=== PATIENT | female | born 1950 | race Caucasian/White ===

== ENCOUNTER → 2017-11-14 | Outpatient (CLI) | payer MEDICARE, OTHER ==
[2017-08-18 12:41] VITALS: BP 115/72
[~2017-11-14] MED LIST: ASCO10002 PO; ASPI325T11 PO; CALC-112 PO; CELE200C PO; CHOL10003 PO; EZET1TAB30 PO; FERR325T14 PO; FISH1CAP PO; GLUC100018 PO; IBUP-1007 PO; MULT1TAB52 PO; OXYC-323 PO; SENN1TAB99 PO
[2017-11-14 10:44] LABS: BASO # 0.1 x10^3/uL (0.0-0.2); BASO % 1 % (0-3); EOS # 0.1 x10^3/uL (0.0-0.7); EOS % 2 % (0-3); HEMATOCRIT 40.7 % (36.0-47.0); LYMPH # 1.6 x10^3/uL (1.0-4.8); LYMPH % 20 % (24-48); MEAN CORPUSCULAR HEMOGLOBIN 31 pg (25-35); MEAN CORPUSCULAR HGB CONC 34 g/dL (31-37); MEAN CORPUSCULAR VOLUME 92 fL (79-100); MONO # 0.7 x10^3/uL (0.0-1.1); MONO % 9 % (0-9); NEUT # 5.5 x10^3uL (1.8-7.7); NEUT % 70 % (31-73); PLATELET COUNT 307 x10^3/uL (140-400); RED BLOOD COUNT 4.45 x10^6/uL (3.50-5.40); RED CELL DISTRIBUTION WIDTH 14.8 % (11.5-14.5); WHITE BLOOD COUNT 7.9 x10^3/uL (4.0-11.0)
[2017-11-14 10:44] LABS: BILIRUBIN,URINE NEGATIVE (NEG); CLARITY,URINE CLEAR; COLOR,URINE YELLOW; NITRITE,URINE NEGATIVE (NEG); PH,URINE 6.5; PROTEIN,URINE NEGATIVE (NEG-TRACE); UROBILINOGEN,URINE 0.2 mg/dL (0.2 mg/dL)
[2017-11-14 10:51] LABS: BACTERIA,URINE 0 /HPF (0-FEW); RBC,URINE OCC /HPF (0-2); SQUAMOUS EPITHELIAL CELL,UR FEW /LPF; WBC,URINE 0 /HPF (0-4)
[2017-11-14 11:05] LABS: ALBUMIN 3.9 g/dL (3.4-5.0); CALCIUM 9.5 mg/dL (8.5-10.1); CREATININE 0.6 mg/dL (0.6-1.0); GFR 99.7; POTASSIUM 3.7 mmol/L (3.5-5.1)
[2017-11-14 11:06] LABS: PROTHROMBIN TIME PATIENT 12.5 SEC (11.7-14.0)
== END | disposition home or self-care (01) ==
LOC: SURGPAT 10:09
PROVIDERS: ATTEND Orthopaedic Surgery
DX: Z01.818 Encounter for other preprocedural examination (principal); M17.0 Bilateral primary osteoarthritis of knee; E78.5 Hyperlipidemia, unspecified; Z91.041 Radiographic dye allergy status; Z82.49 Family history of ischemic heart disease and other diseases of the circulatory system; Z79.899 Other long term (current) drug therapy
CPT/HCPCS: 36415; 80048; 81001; 82040; 82306; 85025; 85610; 85651; 85730; 87641

== ENCOUNTER 2017-11-29 09:07 | Inpatient (IN) | payer MEDICARE, OTHER ==
--- NOTE | 2017-11-28 14:45 | PDOC1 ---
History and Physical Date of Admission Date of Admission DATE: 11/29/17 Identification/Chief Complaint Chief Complaint left knee osteoarthritis pain Source Source: Chart review History of Present Illness History of Present Illness The patient is a 66 year old female with left knee pain for 5 years, worsening in the last year. She had a right total knee arthroplasty on 08/16/17, which is doing well and is now her good knee. "Stepping wrong" causes a sharp pain. She has not been able to do her gardening due to the pain. She would like to discuss a left total knee arthroplasty now since her right knee is doing so well. She notes she is walking a mile a day. The left knee bothers her on a daily basis and limits her activity. Past Medical History Cardiovascular: Hyperlipidemia Past Surgical History Past Surgical History: Total knee replacement (right - 08/16/17), Tubal Ligation Family History Family History: Hypertension Social History Smoke: No ALCOHOL: none Drugs: None Current Medications Current Medications Current Medications Ondansetron HCl (Zofran) 4 mg PRN Q6HRS PRN IV NAUSEA/VOMITING; Start 11/29/17 at 07:00; Stop 11/29/17 at 18:00 Fentanyl Citrate (Fentanyl 2ml Vial) 25 mcg PRN Q5MIN PRN IV MILD PAIN; Start 11/29/17 at 07:00; Stop 11/29/17 at 18:00 Fentanyl Citrate (Fentanyl 2ml Vial) 50 mcg PRN Q5MIN PRN IV MODERATE TO SEVERE PAIN; Start 11/29/17 at 07:00; Stop 11/29/17 at 18:00 Morphine Sulfate (Morphine Sulfate) 1 mg PRN Q10MIN PRN IV SEVERE PAIN; Start 11/29/17 at 07:00; Stop 11/29/17 at 18:00 Ringer's Solution 1,000 ml @ 30 mls/hr Q24H IV ; Start 11/29/17 at 07:00; Stop 11/29/17 at 18:59 Lidocaine HCl (Xylocaine-Mpf 1% 2ml Vial) 2 ml PRN 1X PRN ID IV START; Start 11/29/17 at 07:00; Stop 11/29/17 at 18:00 Hydromorphone HCl (Dilaudid) 0.5 mg PRN Q10MIN PRN IV SEV PAIN, Second choice; Start 10/9/18 at 07:00; Stop 11/29/17 at 18:00 Prochlorperazine Edisylate (Compazine) 5 mg PACU PRN PRN IV NAUSEA, MRX1; Start 11/29/17 at 07:00; Stop 11/29/17 at 18:00 Active Scripts Active Reported Vitamin D3 (Cholecalciferol (Vitamin D3)) 1,000 Unit Tablet 1 Tab PO BID Glucosamine (Glucosamine Sulfate 2KCL) 1,000 Mg Tablet 1,000 Mg PO BID Citracal + D Er Tablet (Calcium Carb & Cit/Vitamin D3) 1 Each Tablet.er 2 Each PO DAILY Multivitamins (Multivitamin) 1 Each Tablet 1 Tab PO DAILY Ferrous Sulfate 325 Mg Tablet 1 Tab PO DAILY Fish Oil 1,200 Mg Fish Oil (Fish Oil/Dha/Epa) 1 Each Capsule 1 Each PO DAILY Vitamin C (Ascorbic Acid) 1,000 Mg Tablet 1,000 Mg PO BID Vytorin 10-20 Mg Tablet (Ezetimibe/Simvastatin) 1 Each Tablet 1 Each PO HS Allergies Allergies: Coded Allergies: No Known Medication Allergies (Verified Allergy, Unknown, 08/16/17) Physical Exam General: Alert, Oriented X3, Cooperative, No acute distress HEENT: Atraumatic, EOMI Lungs: Normal air movement Heart: RRR Abdomen: Soft Extremities: No clubbing, No cyanosis, Normal pulses, Other (LEFT KNEE: No masses. No detectable effusion. Tenderness on the medial and lateral joint lines. Range of motion is 5-115 degrees. There is crepitus with range of motion , and pain at the extremes of motion. The knee is stable to varus and valgus stress without subluxation or laxity. Muscle strength is normal (5/5) for quadriceps and hamstrings, and muscle tone is normal. The skin is normal with no scars, rashes, lesions or ulcers. Light touch sensation is intact. No edema and no varicosities. Dorsalis pedis pulse is intact and capillary refill is normal. ) Skin: No rashes, No breakdown, No significant lesion Neuro: Normal speech, Sensation intact Psych/Mental Status: Mental status NL, Mood NL VTE Prophylaxis Ordered VTE Prophylaxis Devices: Yes VTE Pharmacological Prophylaxi: Yes Assessment/Plan Assessment/Plan Left knee osteoarthritis pain. As her right knee is doing so well, I think she would be a good candidate to replace the left knee. She would like to proceed with total knee replacement. We will not send her to the [facility] preoperatively as she just did it with right knee. She will schedule at her convenience. We discussed the risks and benefits of knee replacement including bleeding, infection, post- operative stiffness, instability, mora-prosthetic fracture, DVT and PE. All questions were answered. She would like to proceed with the surgery to improve her pain with activity. Follow up with me 10-14 days after surgery. JOSHUA LIZARRAGA Nov 28, 2017 14:45
[~2017-11-29] VITALS: Ht 154.9 cm; Wt 63.5 kg
[2017-11-29] VITALS (7 sets, daily range): BP systolic 94–121; BP diastolic 56–66
[~2017-11-29 09:07] MED LIST changes: +CELECOXIB 100 MG CAPSULE. PO PRN; +HYDROcodone/APAP 7.5/325MG 1 TAB TABLET PO PRN; +HYDROmorphone 2 MG/ML VIAL IV PRN; +IV RINGERS,LACTATED 1000ML 1,000 ML IV SCH; +LIDOCAINE 1% PF 2 ML VIAL. ID PRN; +MORPHINE SULFATE 2 MG/ML VIAL. IV PRN; +MORPHINE SULFATE 5 MG, KETOROLAC 30MG VIAL 30 MG, ROPIVacaine 0.5% PF 60 ML, EPINEPHrin... INT ART ONE; +ONDANSETRON PF 4 MG/2 ML VIAL. IV PRN; +PROCHLORPERAZINE 10 MG/2 ML VIAL. IV PRN; +TRANEXAMIC ACID 1,000 MG in IV NS 50ML -- 1ST BAG INJ ONE; +TRANEXAMIC ACID 1,000 MG in IV NS 50ML -- 2ND BAG INJ ONE; +fentaNYL PF VIAL 100 MCG/2 ML VIAL IV PRN
[2017-11-29] MEDS ORDERED: SCOPOLAMINE 1.5MG PATCH. TD ONE (10:00)
[2017-11-29] MEDS ORDERED: FAMOTIDINE 20 MG/2 ML VIAL ONE (10:28)
[2017-11-29] MEDS ORDERED: fentaNYL PF VIAL 100 MCG/2 ML VIAL ONE ×2 (10:28→14:47)
[2017-11-29] MEDS ORDERED: PROPOFOL 20 ML IV ONE (10:28)
[2017-11-29] MEDS ORDERED: DEXAMETHASONE SOD PHOS 20 MG/5 ML VIAL. ONE (10:28)
[2017-11-29] MEDS ORDERED: ROCURONIUM 50 MG/5 ML VIAL. ONE (10:28)
[2017-11-29] MEDS ORDERED: MIDAZOLAM HCL/PF 2 MG/2 ML VIAL. ONE (10:28)
[2017-11-29] MEDS ORDERED: ONDANSETRON PF 4 MG/2 ML VIAL. ONE (10:28)
[2017-11-29] MEDS ORDERED: VANCOMYCIN 1 GM VIAL. ONE (11:30)
[2017-11-29] MEDS ORDERED: TOBRAMYCIN POWDER 1.2 GM VIAL. ONE (11:31)
[2017-11-29] MEDS ORDERED: ePHEDrine PF IN SALINE 50 MG/5 ML DISP.SYRIN IV ONE (14:00)
[2017-11-29] MEDS ORDERED: PHENYLEPHRINE in 0.9% NACL PF 1 MG/10 ML SYRINGE. IV ONE (14:26)
[2017-11-29] MEDS ORDERED: SEVOFLURANE 61 TO 120 MINUTES. IH ONE (15:48)
--- NOTE | 2017-11-29 15:58 | PDOC4 ---
Operative Note Operative Note Date of Procedure: November 29, 2017 Pre-Op Diagnosis: Osteoarthritis left knee Post-Op Diagnosis: Osteoarthritis left knee Procedure: left total knee arthroplasty Surgeon: Aracely Gunter MD Skoog Patching Machine Operator: Vicky Viera PA-C Anesthesia: General EBL: 100 mL Specimens Obtained: left knee bone and soft tissue Complications: none Implant Company: [employer] Drains: hemovac plus pain catheter Tourniquet time: 49 Minutes Tourniquet Pressure: 350 mm Hg Indications for Procedure: Arthritis pain unrelieved by nonoperative management Findings: Severe osteoarthritis with severe medial eburnation and bone loss, and bone on bone contact medially with full thickness cartilage loss in the patellofemoral and lateral compartments. Implants used: Size 3 left bicruciate stabilized Journey II BCS cobalt chrome femoral component, size 3 left Journey nonporous tibial baseplate, size 3 -4 18 mm left Journey II BCS XLPE constrainedarticular insert, 32 mm oval Valentina II resurfacing patellar component Procedure in Detail: The patient was identified in the preoperative holding area, and the correct left lower extremity was marked by me. The patient was taken to the operating room where the patient was anesthetized by the Department of Anesthesia. Preoperative antibiotics were given intravenously. Tranexamic acid 1 g was given intravenously for intraoperative hemostasis. A "time-out" procedure was performed. The patient was positioned supine on the operative table with a tourniquet on the upper left thigh. The left lower limb was thoroughly prepped and draped in sterile fashion. An impervious stockinet and adhesive drape were used such that the skin was entirely covered. An Willis leg jack was used. The operating team wore personal exhaust-ventilated hoods. The limb was elevated and exsanguinated with an Esmarch bandage, and the tourniquet was inflated. A midline skin incision was made with a scalpel using the patella and tibial tubercle as landmarks. Electrocautery was used for hemostasis. My assistant store manager sales used rake retractors. A medial parapatellar arthrotomy incision was used with extension into the distal quadriceps tendon. The patella was retracted laterally and Hohmann retractors were now used by my assistant store manager sales. Excess synovium, the menisci, and the cruciate ligaments were resected sharply. The patella was assessed and excess synovium and osteophytes around the patellar articulation were removed. The patella was measured with a caliper, cut freehand with a saw using caliper measurements, sized, and then drilled for an oval three-pegged patella component. Periarticular anesthetic injection was used in the suprapatellar pouch and distal quadriceps muscle. Whitesides's line and the transepicondylar axis were marked on the femur. An intra-medullary 5 degree cutting guide was pinned to the femur, and a distal femoral cut was made with an oscillating saw. No additional distal femoral resection was required. My assistant store manager sales held Hohmann retractors and an [facility] retractor to protect the medial and lateral collateral ligaments, the patellar tendon, the skin and the other soft tissues. A posterior referencing guide was applied with external rotation of 3 to match Whitesides line. A 5-in-1 Journey II cutting guide was then applied and pinned to the femur. The posterior, anterior, and all chamfer cuts were made with the oscillating saw. An extramedullary guide was pinned to the tibia and rotational alignment and the planned resection thickness assessed. An external alignment richard was used to verify the planned cut in the varus-valgus plane and regarding posterior slope referencing the tibial tubercle, the tibial shaft, the ankle joint, and the second metatarsal. The upper tibia was cut made with an oscillating saw. My assistant store manager sales held Hohmann retractors and a posterior cruciate ligament retractor to protect the medial and lateral collateral ligaments, the patellar tendon, the skin, the peroneal nerve and the other soft tissues. The upper tibia was sized with a trial baseplate. The posterior compartment was cleared of osteophytes and loose bodies. Periarticular anesthetic injection was used in the posterior compartment. The box cut for a posterior stabilized component was made. A preliminary reduction was performed with a trial femur, trial tibial baseplate and trial polyethylene. Soft-tissue balancing was now performed, and extension and rotation of the alignments was checked using a guide richard in the tibial trial and a guide pin in the femur. No additional releases were required. The stability was assessed using different thicknesses of tibial articular surface to find satisfactory stability and good range of motion. The rotation of the tibial component was marked on the upper tibia. Final trial reduction was now performed verifying patella tracking and tibiofemoral stability and alignment. The tibia preparation was completed with a drill, saw, and fin punch at the previously noted rotation. The final implants were verified and opened. Outer gloves were changed by the operating team. The bone cuts were washed thoroughly with the Carloz InterPulse device and dried. I asked Ms. Viera to leave the room on the cement was mixed. Two packages of Francis + Nephew Rally MV bone cement were mixed in powdered form with Vancomycin 1gm and Tobramycin 1.2 gm, and then vacuum-mixed with the monomer, and placed into a cement gun. The cut surfaces of the bone were thoroughly dried with Alvarez-tip suction and with laparotomy sponges for cement interdigitation. The final components were cemented into place. The knee was kept at full extension while the cement hardened, and excess cement was removed. Tranexamic acid 1 g was redosed intravenously for additional intraoperative hemostasis. The tourniquet was released, and electrocautery was used for hemostasis. A final periarticular anesthetic injection was used for pain relief. Ms. Viera scrubbed , hooded, gowned, gloved, and returned to the case. A final check of [id number] and stability was made, and the polyethylene implant final size was chosen. The polyethylene implant was secured to the tibial baseplate, and the knee was reduced a final time and range of motion and stability was confirmed. Thorough irrigation was used. Hemovac and pain catheter were used.The arthrotomy was closed with interrupted [id number] # 1 PDS suture. The arthrotomy incision was then run with #1 STRATAFIX Symmetric PDS Plus Knotless suture. The subcutaneous tissues were closed with #2-0 Vicryl by my assistant store manager sales. The skin was approximated with jeffrey by my assistant store manager sales. The skin incision was then covered and reinforced with BLAS single use negative pressure wound therapy dressing Needle and sponge counts were correct. There were no apparent complications. The patient returned to the recovery room in stable condition. ARACELY GUNTER MD Nov 29, 2017 15:58
[2017-11-29] MEDS ORDERED: 0.9 % SODIUM CHLORIDE 10 ML DISP.SYRIN. IV PRN (16:15)
[2017-11-29] MEDS ORDERED: DEXTROSE 50% 25 GM / 50ML DISP.SYRIN. IV PRN (16:15)
[2017-11-29] MEDS ORDERED: MORPHINE SULFATE 2 MG/ML VIAL. IV PRN (16:15)
[2017-11-29] MEDS ORDERED: fentaNYL PF VIAL 100 MCG/2 ML VIAL IV PRN ×2 (16:15)
[2017-11-29] MEDS ORDERED: CALCIUM CARBONATE 500 MG TAB.CHEW PO PRN (16:15)
[2017-11-29] MEDS ORDERED: traMADol 50 MG TABLET PO PRN ×2 (16:15)
[2017-11-29] MEDS ORDERED: oxyCODONE/APAP 5/325 1 TAB TABLET PO PRN (16:15)
[2017-11-29] MEDS ORDERED: MORPHINE SULFATE 10 MG/ML VIAL. IV PRN (16:15)
[2017-11-29] MEDS ORDERED: ACETAMINOPHEN 325 MG TABLET. PO PRN (16:15)
[2017-11-29] MEDS ORDERED: PROCHLORPERAZINE 5 MG TABLET. PO PRN (16:15)
[2017-11-29] MEDS ORDERED: oxyCODONE/APAP 7.5/325 1 TAB TABLET PO PRN (16:15)
[2017-11-29] MEDS ORDERED: diphenhydrAMINE HCL 25 MG CAPSULE PO PRN (16:15)
[2017-11-29] MEDS ORDERED: HYDROcodone/APAP 10/325 1 TAB TABLET PO PRN (16:15)
[2017-11-29] MEDS ORDERED: METOCLOPRAMIDE HCL 10 MG/2 ML VIAL. IV PRN (16:15)
[2017-11-29] MEDS ORDERED: MORPHINE SULFATE 4 MG/ML VIAL. IV PRN ×2 (16:15)
[2017-11-29] MEDS ORDERED: PROCHLORPERAZINE 10 MG/2 ML VIAL. IV PRN (16:15)
[2017-11-29] MEDS ORDERED: ZOLPIDEM 5 MG TABLET. PO PRN (16:15)
[2017-11-29] MEDS: KETOROLAC 30MG VIAL 30 MG, BUPIVACAINE MPF 0.25% 20 ML, EPINEPHrine 0.5 MG in TOTAL VOL... INT ART SCH (18:16)
[2017-11-29] MEDS: FERROUS SULFATE 325 MG TABLET. PO SCH (18:17)
[2017-11-29] MEDS: IV DEXTROSE 5 %-0.45 % NACL 1,000 ML IV SCH (20:08)
[2017-11-29] MEDS ORDERED: EZETIMIBE PO SCH (21:00)
[2017-11-29] MEDS ORDERED: SIMVASTATIN PO SCH (21:00)
[2017-11-29] MEDS: CHOLECALCIFEROL (VITAMIN D3) 1,000 UNIT TABLET PO SCH (21:05)
[2017-11-29] MEDS: ASCORBIC ACID 500 MG TABLET PO SCH (21:05)
[2017-11-29] MEDS: CELECOXIB 100 MG CAPSULE. PO SCH (21:05)
[2017-11-29] MEDS: SIMVASTATIN 20 MG TABLET PO SCH (21:08)
[2017-11-29] MEDS: EZETIMIBE 10 MG TABLET. PO SCH (21:08)
[2017-11-29] MEDS: ASPIRIN ENTERIC COATED 325 MG TABLET.DR. PO SCH (21:09)
--- NOTE | 2017-11-30 02:03 | RAD ---
Left knee 2 views: Reason for examination: Postop left knee arthroplasty. There are postop changes from left total knee arthroplasty. Drainage tube is present laterally. Surgical clips are present anteriorly. No acute fracture or dislocation is seen. IMPRESSION: Postop left total knee arthroplasty. Electronically signed by: Augustina Jesus MD (11/30/2017 1:59 AM) [facility]
[2017-11-30 03:00] VITALS: BP 95/50
[2017-11-30] MEDS: IV DEXTROSE 5 %-0.45 % NACL 1,000 ML IV SCH (04:00)
[2017-11-30 04:44] LABS: HEMATOCRIT 34.8 % (36.0-47.0); HEMOGLOBIN 11.7 g/dL (12.0-15.5)
[2017-11-30] MEDS: KETOROLAC 30MG VIAL 30 MG, BUPIVACAINE MPF 0.25% 20 ML, EPINEPHrine 0.5 MG in TOTAL VOL... INT ART SCH (05:31)
[2017-11-30 06:00] VITALS: BP 107/66
[2017-11-30] MEDS ORDERED: MAGNESIUM HYDROXIDE 2,400 MG/30 ML ORAL.SUSP. PO PRN (06:00)
[2017-11-30] MEDS: ASPIRIN ENTERIC COATED 325 MG TABLET.DR. PO SCH ×2 (08:28→20:39)
[2017-11-30] MEDS: CELECOXIB 100 MG CAPSULE. PO SCH ×2 (08:28→20:39)
[2017-11-30] MEDS: FERROUS SULFATE 325 MG TABLET. PO SCH ×2 (08:29→16:53)
[2017-11-30] MEDS: SENNOSIDES/DOCUSATE 8.6/50MG TABLET. PO SCH (08:29)
[2017-11-30] MEDS: CHOLECALCIFEROL (VITAMIN D3) 1,000 UNIT TABLET PO SCH ×2 (08:29→20:39)
[2017-11-30] MEDS: CALCIUM CARB/VIT D3 500/200 TABLET. PO SCH (08:29)
[2017-11-30] MEDS: MULTIVITAMIN with MINERAL TABLET. PO SCH (08:29)
[2017-11-30] MEDS: ASCORBIC ACID 500 MG TABLET PO SCH ×2 (08:29→20:39)
[2017-11-30] MEDS: HYDROcodone/APAP 7.5/325MG 1 TAB TABLET PO PRN ×2 (08:30→12:46)
--- NOTE | 2017-11-30 09:46 | PDOC ---
PROGRESS NOTES Subjective Subjective Doing well. Pain controlled. Objective Vital Signs Vital Signs Date Time Temp Pulse Resp B/P (MAP) Pulse Ox O2 Delivery O2 Flow Rate FiO2 11/30/17 08:30 Room Air 11/30/17 06:00 97.5 72 20 107/66 (80) 94 97.5 11/30/17 03:00 2.0 Physical Exam Postop dressing dry and intact. Hemovac and pain catheter in place. Thigh and calf soft and nontender with negative Homans sign. Good AROM toes, foot, and ankle, with no sign of neurovascular injury nor compartment syndrome. Labs Laboratory Tests Test 11/30/17 04:08 Hemoglobin 11.7 g/dL (12.0-15.5) Hematocrit 34.8 % (36.0-47.0) Mean Corpuscular Hemoglobin Concent 34 g/dL (31-37) Laboratory Tests Test 11/30/17 04:08 Hemoglobin 11.7 g/dL (12.0-15.5) Hematocrit 34.8 % (36.0-47.0) Mean Corpuscular Hemoglobin Concent 34 g/dL (31-37) Imaging Postoperative knee x-rays report reviewed, images independently reviewed. Satisfactory TKA alignment with no apparent complications. Assessment Assessment POD #1 TKA Plan Plan of Care Continue POC including PT and DVT prophylaxis. JOSHUA LIZARRAGA Nov 30, 2017 09:46
[2017-11-30] MEDS ORDERED: BISACODYL 10 MG SUPP.RECT. PR PRN (16:00)
[2017-11-30 18:25] VITALS: BP 102/62
[2017-11-30] MEDS: SIMVASTATIN 20 MG TABLET PO SCH (20:39)
[2017-11-30] MEDS: EZETIMIBE 10 MG TABLET. PO SCH (20:39)
[2017-12-01] MEDS: HYDROcodone/APAP 7.5/325MG 1 TAB TABLET PO PRN ×4 (05:35→23:20)
[2017-12-01 05:40] VITALS: BP 115/65
[2017-12-01 06:03] LABS: HEMATOCRIT 35.1 % (36.0-47.0); HEMOGLOBIN 11.9 g/dL (12.0-15.5)
[2017-12-01] MEDS: CELECOXIB 100 MG CAPSULE. PO SCH ×2 (08:00→20:25)
[2017-12-01] MEDS: FERROUS SULFATE 325 MG TABLET. PO SCH ×2 (08:00→16:50)
[2017-12-01] MEDS: SENNOSIDES/DOCUSATE 8.6/50MG TABLET. PO SCH (08:01)
[2017-12-01] MEDS: ASCORBIC ACID 500 MG TABLET PO SCH ×2 (08:01→20:24)
[2017-12-01] MEDS: CALCIUM CARB/VIT D3 500/200 TABLET. PO SCH (08:01)
[2017-12-01] MEDS: MULTIVITAMIN with MINERAL TABLET. PO SCH (08:01)
[2017-12-01] MEDS: CHOLECALCIFEROL (VITAMIN D3) 1,000 UNIT TABLET PO SCH ×2 (08:01→20:24)
[2017-12-01] MEDS: ASPIRIN ENTERIC COATED 325 MG TABLET.DR. PO SCH ×2 (08:01→20:24)
--- NOTE | 2017-12-01 12:38 | PDOC ---
PROGRESS NOTES Subjective Subjective Pain controlled Objective Vital Signs Vital Signs Date Time Temp Pulse Resp B/P (MAP) Pulse Ox O2 Delivery O2 Flow Rate FiO2 12/01/17 09:23 Room Air 12/01/17 05:40 99.1 87 20 115/65 (82) 96 99.1 11/30/17 03:00 2.0 Physical Exam Knee BLAS dressing with spotty drainage only, and slight bleeding from hemovac site. Calf and thigh soft and NT. Good AROM toes, foot and ankle with negative Homans and no sign of neurovascular injury nor compartment syndrome. Pain catheter and hemovac have been removed. Not yet safely walking with walker Labs Laboratory Tests Test 11/30/17 04:08 12/01/17 05:00 Hemoglobin 11.7 g/dL (12.0-15.5) 11.9 g/dL (12.0-15.5) Hematocrit 34.8 % (36.0-47.0) 35.1 % (36.0-47.0) Mean Corpuscular Hemoglobin Concent 34 g/dL (31-37) 34 g/dL (31-37) Laboratory Tests Test 12/01/17 05:00 Hemoglobin 11.9 g/dL (12.0-15.5) Hematocrit 35.1 % (36.0-47.0) Mean Corpuscular Hemoglobin Concent 34 g/dL (31-37) Imaging Postoperative knee x-rays report reviewed, images independently reviewed. Satisfactory TKA alignment with no apparent complications. Assessment Assessment POD 2 after TKA Plan Plan of Care Continue PT and DVT prophylaxis. Discharge planning for tomorrow ARACELY BAEZ MD Dec 01, 2017 12:38
[2017-12-01 17:01] VITALS: BP 116/75
[2017-12-01 19:00] VITALS: BP 122/72
[2017-12-01] MEDS: SIMVASTATIN 20 MG TABLET PO SCH (20:24)
[2017-12-01] MEDS: EZETIMIBE 10 MG TABLET. PO SCH (20:24)
[2017-12-02 06:00] VITALS: BP 111/44
[2017-12-02 06:00] LABS: HEMOGLOBIN 11.6 g/dL (12.0-15.5)
[2017-12-02] MEDS: FERROUS SULFATE 325 MG TABLET. PO SCH (07:36)
[2017-12-02] MEDS: SENNOSIDES/DOCUSATE 8.6/50MG TABLET. PO SCH (08:20)
[2017-12-02] MEDS: ASPIRIN ENTERIC COATED 325 MG TABLET.DR. PO SCH (08:21)
[2017-12-02] MEDS: ASCORBIC ACID 500 MG TABLET PO SCH (08:21)
[2017-12-02] MEDS: CELECOXIB 100 MG CAPSULE. PO SCH (08:21)
[2017-12-02] MEDS: CALCIUM CARB/VIT D3 500/200 TABLET. PO SCH (08:21)
[2017-12-02] MEDS: MULTIVITAMIN with MINERAL TABLET. PO SCH (08:21)
[2017-12-02] MEDS: CHOLECALCIFEROL (VITAMIN D3) 1,000 UNIT TABLET PO SCH (08:21)
[2017-12-02] MEDS: HYDROcodone/APAP 7.5/325MG 1 TAB TABLET PO PRN (09:49)
[2017-12-02 14:09] VITALS: BP 114/66
--- NOTE | 2017-12-02 14:40 | PDOC ---
PROGRESS NOTES Subjective Subjective Doing well, pain controlled. Objective Vital Signs Vital Signs Date Time Temp Pulse Resp B/P (MAP) Pulse Ox O2 Delivery O2 Flow Rate FiO2 12/02/17 14:09 99.2 108 114/66 (82) 96 Room Air 99.2 12/02/17 06:00 16 11/30/17 03:00 2.0 Physical Exam BLAS dressing intact with spotty drainage only. Calf and thigh soft and NT. Good AROM toes, foot and ankle with negative Homans sign and no sign of neurovascular injury nor compartment syndrome. Labs Laboratory Tests Test 12/01/17 05:00 12/02/17 05:15 Hemoglobin 11.9 g/dL (12.0-15.5) 11.6 g/dL (12.0-15.5) Hematocrit 35.1 % (36.0-47.0) 34.0 % (36.0-47.0) Mean Corpuscular Hemoglobin Concent 34 g/dL (31-37) 34 g/dL (31-37) Laboratory Tests Test 12/02/17 05:15 Hemoglobin 11.6 g/dL (12.0-15.5) Hematocrit 34.0 % (36.0-47.0) Mean Corpuscular Hemoglobin Concent 34 g/dL (31-37) Assessment Assessment POD #3 TKA Plan Plan of Care Continue PT and DVT prophylaxis. Discharge this afternoon after therapy. JOSHUA LIZARRAGA Dec 02, 2017 14:40
--- NOTE | 2017-12-02 14:46 | PDOC3 ---
Discharge Summary Visit Information Date of Admission: Nov 29, 2017 Date of Discharge: Dec 02, 2017 Admitting Diagnosis: left knee osteoarthritis pain Brief Hospital Course Allergies Allergies Coded Allergies Type Severity Reaction Last Updated Verified No Known Medication Allergies Allergy Unknown 11/29/17 Yes Vital Signs Vital Signs Date Time Temp Pulse Resp B/P (MAP) Pulse Ox O2 Delivery O2 Flow Rate FiO2 12/02/17 14:09 99.2 108 114/66 (82) 96 Room Air 99.2 12/02/17 06:00 16 Lab Results Laboratory Tests Test 12/01/17 05:00 12/02/17 05:15 Hemoglobin 11.9 g/dL (12.0-15.5) 11.6 g/dL (12.0-15.5) Hematocrit 35.1 % (36.0-47.0) 34.0 % (36.0-47.0) Mean Corpuscular Hemoglobin Concent 34 g/dL (31-37) 34 g/dL (31-37) Laboratory Tests Test 12/02/17 05:15 Hemoglobin 11.6 g/dL (12.0-15.5) Hematocrit 34.0 % (36.0-47.0) Mean Corpuscular Hemoglobin Concent 34 g/dL (31-37) Brief Hospital Course 67 year old female who presented with left knee osteoarthritis, for elective total knee arthroplasty. The patient underwent left total knee arthroplasty under general anesthesia the day of admission. Perioperative antibiotics and DVT prophylaxis were used. Postoperatively physical therapy and case management were consulted. The patient progressed and is stable for discharge. Discharge Information Condition at Discharge: Stable Follow Up: Weeks (2) Disposition/Orders: D/C to Home Scheduled Ascorbic Acid (Vitamin C), 1,000 MG PO BID, (Reported) Calcium Carb & Cit/Vitamin D3 (Citracal + D Er Tablet), 2 EACH PO DAILY, ( Reported) Cholecalciferol (Vitamin D3) (Vitamin D3), 1 TAB PO BID, (Reported) Ezetimibe/Simvastatin (Vytorin 10-20 Mg Tablet), 1 EACH PO HS, (Reported) Ferrous Sulfate (Ferrous Sulfate), 1 TAB PO DAILY, (Reported) Fish Oil/Dha/Epa (Fish Oil 1,200 Mg Fish Oil), 1 EACH PO DAILY, (Reported) Glucosamine Sulfate 2KCL (Glucosamine), 1,000 MG PO BID, (Reported) Multivitamin (Multivitamins), 1 TAB PO DAILY, (Reported) Patient Instructions Patient Instructions Patient Instructions Continue to WBAT with walker. Keep dressing dry and intact. F/U with [facility] in 10-14 days. Call for appointment. Physical therapy for TKA Continue DVT prophylaxis with aspirin 325mg twice daily. JOSHUA LIZARRAGA Dec 02, 2017 14:46
--- NOTE | 2017-12-06 10:10 | PATHOLOGY ---
[facility] Accession Number: [id number] . 01 Material submitted: . LEFT KNEE BONE AND SOFT TISSUE . 01 Clinician provided ICD-10: M17.12 . 01 Clinical history: . Osteoarthritis . 02 Diagnosis: Left knee, arthroplasty: - Bone and articular cartilage with degenerative change. - Synovium, fibrocartilage, and fibroadipose tissue with reactive changes. . (MAP:talent development analyst; 12/05/2017) MBR/12/05/2017 . 02 Electronically signed: . Nabor Gordon MD, Pathologist NPI- [id number] . 01 Gross description: . Received in formalin labeled "Brandi Leroy, left knee bone and soft tissue," are multiple segments of bone, including tibial plateau, measuring 17.3 x 11.3 x 2.6 cm in aggregate dimensions. Soft tissue and meniscus are present. The specimen displays focal eburnation of the articular surfaces. Mechanical Process Engineer bone and soft tissue are submitted in cassette A1, following decalcification. ([facility]; 12/01/2017) XDC/XDC . 02 Pathologist provided ICD-10: M17.12 . 02 CPT . 680408, [id number] Specimen Comment: A courtesy copy of this report has been sent to Specimen Comment: [phone], . Specimen Comment: Report sent to / DR SILVA Performed at: 01 [facility] [address], [place], [place] [id number] MD Christopher Tomlin MD Phone: [phone] Performed at: 02 [facility] [address], [place], [place] [id number] MD Antonio Hdz MD Phone: [phone]
== END 2017-12-02 16:25 | disposition home or self-care (01) | DRG 470 ==
LOC: OPSVCIP 09:07 → 4 SOUTHEST 17:27
PROVIDERS: ADMIT Orthopaedic Surgery; ATTEND Orthopaedic Surgery
PROC: 0SRD0J9 Replacement of Left Knee Joint with Synthetic Substitute, Cemented, Open Approach (ICD-10-PCS; principal; 2017-11-29 12:15)
DX: M17.12 Unilateral primary osteoarthritis, left knee (principal); E78.5 Hyperlipidemia, unspecified; Z96.651 Presence of right artificial knee joint; Z79.899 Other long term (current) drug therapy; Z98.51 Tubal ligation status; Z82.49 Family history of ischemic heart disease and other diseases of the circulatory system
CPT/HCPCS: 36415; 73560; 85014; 85018; 86850; 86900; 86901; 88305; 88311; A7015; C1713; J0171; J0690; J1100; J1885; J2250; J2270; J2370; J2405; J2704; J2795; J3010; J3260; J3370; J3490; J7030; J7120; S0028; 97116; 97150; 97530; 97535; A4461; C1769